=== PATIENT | male | born 1980 | race Caucasian/White ===

== ENCOUNTER 2020-01-15 13:45 | Emergency (ER) | payer OTHER, SELFPAY ==
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
[2020-01-15 13:51] VITALS: BP 142/110; PULSE 98; RESP 18; TEMP 36.8; O2SAT 100
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
[2020-01-15] MEDS: KETOROLAC 30 MG/ML VIAL (*BKC) IV PUSH (14:32)
[2020-01-15 15:10] VITALS: TEMP 36.8
== END 2020-01-15 15:26 | disposition home or self-care (01) ==
PROVIDERS: Emergency Provider Emergency Medicine; PCP Family Medicine
DX: S63.501A Unspecified sprain of right wrist, initial encounter (principal); Z72.0 Tobacco use; M47.812 Spondylosis without myelopathy or radiculopathy, cervical region
CPT/HCPCS: 70450; 72125; 73110; 96374; 99284; J1885

== ENCOUNTER 2020-01-18 16:59 | Emergency (ER) | payer OTHER, SELFPAY ==
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
[2020-01-18 18:06] VITALS: BP 144/79; PULSE 52; RESP 16; TEMP 37; O2SAT 97
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
== END 2020-01-18 18:56 | disposition home or self-care (01) ==
PROVIDERS: Emergency Provider Nurse Practitioner Family; PCP Family Medicine
DX: S46.911A Strain of unspecified muscle, fascia and tendon at shoulder and upper arm level, right arm, initial encounter (principal); V49.50XA Passenger injured in collision with unspecified motor vehicles in traffic accident, initial encounter; F17.220 Nicotine dependence, chewing tobacco, uncomplicated
CPT/HCPCS: 73030; 99213; A4565; G0463

== ENCOUNTER 2020-05-31 10:10 | Emergency (ER) | payer OTHER, SELFPAY ==
--- NOTE | ~2020-05-31 | XR_ITS ---
[XR ribs LT 2V ] INDICATION: Left rib pain. Patient tripped over dog. TECHNIQUE: Frontal projection of the upper left ribs, frontal projection of the lower left ribs, obli que projection of all the left ribs, frontal inspiratory chest x-ray for interpretation. FINDINGS: There is an acute left seventh rib fracture. There are no soft tissue abnormality seen. T he lungs are clear. No pneumothorax. IMPRESSION: 1: Acute left seventh rib fracture. Reviewed, dictated and finalized at location B.
[2020-05-31 10:18] VITALS: BP 141/101; PULSE 79; RESP 16; TEMP 36.9; O2SAT 98
--- NOTE | 2020-05-31 10:24 | ED.FALL ---
HPI - Fall General Chief Complaint: Fall Stated Complaint: left rib pain Time Seen by Provider: 05/31/20 10:40 Source: patient and RN notes reviewed Mode of arrival: ambulatory Limitations: no limitations History of Present Illness HPI Narrative: 39-year-old male presents with concern for left rib pain. Reports 6 days ago he fell down 14 steps when he tripped over his dog causing left rib pain. 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 Reports he has been taking ibuprofen twice daily. Denies difficulty breathing, cough, shortness of breath MD complaint: fall Related Data Allergies Allergy/AdvReac Type Severity Reaction Status Date / Time No Known Allergies Allergy Verified 05/31/20 10:24 Review of Systems Review of Systems: Narrative: CONSTITUTIONAL: Denies malaise, chills, sweats, or fever. CARDIOVASCULAR: Denies chest pain, palpitations, or edema. RESPIRATORY: Denies cough or dyspnea. GASTROINTESTINAL: Denies abdominal pain, nausea, vomiting SKIN: Denies bruising, reports healing abrasions MUSCULOSKELETAL: Reports left rib pain All systems reviewed & are unremarkable except as noted in HPI and below PMFSH Social History Social History Smokeless tobacco user: chewing tobacco Alcohol intake: current Gender identity (if verbalized by the patient): Male Comments At time of signature, agree with nursing past medical, surgical, social and family history. There is no relevant family history pertinent to the presenting complaint Exam Narrative: Exam Narrative: GENERAL: Well-appearing, well-nourished, and in no acute distress. HEAD: Normocephalic, atraumatic. EYES: PERRLA, conjunctivae clear ENT: Mucous membranes moist. TM pearly borrero with sharp light reflex bilaterally; no tragal tenderness. Oropharynx without erythema or lesions. Tonsils not enlarged and without exudate. NECK: Supple CHEST: No respiratory distress. Clear to auscultation. No bony deformities, no asymmetry. Speaks in full sentences. HEART: Regular rate and rhythm. EXTREMITIES: Left upper arm has normal range of motion, no edema, normal strength and sensation. Left chest wall tenderness SKIN: Warm, dry, no rash. No bruising noted to chest NEURO: Alert and oriented x3. PSYCH: Normal mood and affect Course Course Emergency Course: Patient is aware of diagnosis, understands and agrees to treatment plan. Anticipatory guidance given. Patient agrees to follow-up as directed and is aware of reasons to seek care at the emergency department. Portions of this record may have been created with voice recognition software Vital Signs Vital signs: Vital Signs Temperature 98.4 F 05/31/20 10:18 Pulse Rate 79 05/31/20 10:18 Respiratory Rate 16 05/31/20 10:18 Blood Pressure 141/101 H 05/31/20 10:18 Pulse Oximetry 98 05/31/20 10:18 Temperature 98.4 F 05/31/20 10:18 Pulse Rate 79 05/31/20 10:18 Respiratory Rate 16 05/31/20 10:18 Blood Pressure 141/101 H 05/31/20 10:18 Pulse Oximetry 98 05/31/20 10:18 Reviewed. Pt has been instructed to follow up with his primary care provider within the next week regarding his elevated blood pressure today. MDM - Fall MDM Narrative Medical decision making narrative: Patients injury and pain is consistent with musculoskeletal etiology. No signs of neurological or vascular compromise on exam. Compartments and tissues are soft without signs of compartment syndrome. Pain is felt appropriate for further evaluation on an outpatient basis. Critical Care Time Critical Care Time Critical Care Time: No Discharge Plan Discharge Clinical Impression: Left rib fracture Patient Disposition: Home, Self-Care Condition: Stable Instructions: Rib Fracture (ED) Additional Instructions: Pain may get worse for a week and last for up to eight weeks.The most importa
== END 2020-05-31 10:58 | disposition home or self-care (01) ==
PROVIDERS: Emergency Provider Nurse Practitioner; PCP Family Medicine
DX: S22.32XA Fracture of one rib, left side, initial encounter for closed fracture (principal); W10.9XXA Fall (on) (from) unspecified stairs and steps, initial encounter; F17.220 Nicotine dependence, chewing tobacco, uncomplicated
CPT/HCPCS: 71100; 99213; G0463

== ENCOUNTER 2022-07-02 08:57 | Emergency (ER) | payer OTHER, SELFPAY ==
--- NOTE | ~2022-07-02 | XR_ITS ---
[XR_[id number] ] INDICATION: Left rib pain after fall TECHNIQUE: Frontal projection of the upper left ribs, frontal projection of the lower left ribs, obli que projection of all the left ribs, frontal inspiratory chest x-ray for interpretation. FINDINGS: There are no displaced rib fractures identified. There are no soft tissue abnormality see n. The lungs are clear. IMPRESSION: 1:No acute displaced rib fractures. Reviewed, dictated and finalized at location B.
[2022-07-02 09:06] VITALS: PULSE 85; RESP 20; TEMP 36.6; O2SAT 100
[2022-07-02 09:25] VITALS: BP 160/105
--- NOTE | 2022-07-02 09:25 | PC.NURSE ---
PT DECLINED ICE FOR COMFORT
--- NOTE | 2022-07-02 09:28 | ED.GENADULT ---
HPI - General Adult General Chief complaint: Unspecified Stated complaint: rib injury Time Seen by Provider: 07/02/22 09:28 Source: patient Mode of arrival: ambulatory Limitations: no limitations History of Present Illness HPI narrative: 41 y/o male presented for c/o left rib pain since yesterday. He states he had fallen on the left rib about 2 weeks ago landing on a tire. The pain was minimal since then. However he returned to work yesterday after being off work for right shoulder injury. States yesterday he performed his normal duties but resulted in left rib pain. No new injury. No bruising. Took ibuprofen for pain. Denies rash or lesions, cough, sob, chest pain fever or chills. Related Data Home Medications Medication Instructions Recorded Confirmed No Home Medications 07/02/22 07/02/22 Allergies Allergy/AdvReac Type Severity Reaction Status Date / Time No Known Allergies Allergy Verified 07/02/22 09:30 Review of Systems Review of Systems: CONSTITUTIONAL: Denies body aches, fever, chills EYES: Denies visual changes ENT: Denies rhinorrhea, congestion CARDIOVASCULAR: Denies chest pain, palpitations, or edema. RESPIRATORY: Denies cough or dyspnea. GASTROINTESTINAL: Denies abdominal pain, nausea, vomiting, or diarrhea. SKIN: Denies rash, itching, or wounds. MUSCULOSKELETAL:Reports left rib pain NEUROLOGIC: Denies headache All systems reviewed & are unremarkable except as noted in HPI and below PMFSH Past Medical History Medical History No pertinent past medical history Surgical History Surgical History No pertinent past surgical history Social History Social History Smokeless tobacco user: chewing tobacco Alcohol intake: current Gender identity (if verbalized by the patient): Male Comments At time of signature, I have reviewed and agree with nursing past medical, surgical, social and family history unless otherwise noted. Please see nursing chart for further information. There is no relevant family history pertinent to the presenting complaint Exam Narrative: GENERAL: Well-appearing; appears in pain EYES: conjunctivae clear CHEST: Speaks in full sentences. No respiratory distress. HEART: Regular rate and rhythm. Normal and equal peripheral pulses. ABD: soft, flat MUSC: guarding left ribs; no bruising, lesions, or deformity, tender with palpation to anterior lower ribs NEURO: Alert and oriented x3. Course Course Emergency Course: Patient is aware of diagnosis, understands and agrees to treatment plan. Anticipatory guidance given. Patient agrees to follow-up as directed and is aware of reasons to seek care at the emergency department. Portions of this record may have been created with voice recognition software Level of Care: Express Care Visit Vital Signs Vital signs: Vital Signs Temperature 98 F 07/02/22 09:06 Pulse Rate 85 07/02/22 09:06 Respiratory Rate 20 07/02/22 09:06 Pulse Oximetry 100 07/02/22 09:06 Oxygen Delivery Room Air 07/02/22 09:06 Temperature 98 F 07/02/22 09:06 Pulse Rate 85 07/02/22 09:06 Respiratory Rate 20 07/02/22 09:06 Blood Pressure 160/105 H 07/02/22 09:25 Pulse Oximetry 100 07/02/22 09:06 Oxygen Delivery Room Air 07/02/22 09:06 Reviewed Medical Decision Making MDM Narrative Medical decision making narrative: X-ray result reviewed with patient. Advised supportive measures and signs/symptoms to go to the ER. Instructed to contact PCP today. Pt is appropriate for outpt treatment and f/u. Differential Diagnosis Differential Diagnosis: rib fracture, rib contusion, costochondritis, musculoskeletal injury, zoster Vital Signs Vital Signs: Vital Signs Temperature 98 F 07/02/22 09:06 Pulse Rate 85 07/02/22 09:06 Respiratory Rate
== END 2022-07-02 09:55 | disposition home or self-care (01) ==
PROVIDERS: Emergency Provider Nurse Practitioner Family; PCP Family Medicine
DX: S20.212A Contusion of left front wall of thorax, initial encounter (principal); W19.XXXA Unspecified fall, initial encounter; F17.220 Nicotine dependence, chewing tobacco, uncomplicated
CPT/HCPCS: 71101; 99213; G0463

== ENCOUNTER 2023-01-20 10:17 | Emergency (ER) | payer OTHER, SELFPAY ==
[2023-01-20 10:26] VITALS: BP 143/102; PULSE 76; RESP 16; TEMP 37.5; O2SAT 100
--- NOTE | 2023-01-20 10:32 | ED.LOWEXIN ---
HPI - Extremity Injury (Lower) General Chief Complaint: Extremity Injury, Lower Stated Complaint: left knee injury Source: patient and RN notes reviewed History of Present Illness HPI Narrative: 42-year-old male presents to urgent care with complaints left superior knee pain. Patient states last he was wrestling with his son and hit his left knee on the bunk bed. Pt reports tenderness, swelling, and bruising to left upper knee. Pt denies any numbness, tingling, limited range of motion, or any other complaints. Patient has taken Advil at home. Some parts of this dictation were generated by voice recognition software and may contain typographical and/or grammatical inaccuracies. Related Data Home Medications Medication Instructions Recorded Confirmed No Home Medications 07/02/22 07/02/22 Allergies Allergy/AdvReac Type Severity Reaction Status Date / Time No Known Allergies Allergy Verified 07/02/22 09:30 Review of Systems Review of Systems: CONSTITUTIONAL: Denies fever, chills, or sweats. EYES: Denies visual changes, redness, or discharge. ENT: Denies otalgia and sore throat CARDIOVASCULAR: Denies chest pain, palpitations, or edema. RESPIRATORY: Denies cough or dyspnea. GASTROINTESTINAL: Denies abdominal pain, nausea, vomiting, or diarrhea. GENITOURINARY: Denies dysuria or hematuria. SKIN: Denies rash or itching. MUSCULOSKELETAL: Left knee pain NEUROLOGIC: Denies headache, numbness, or weakness. [facility] Past Medical History Medical History (Updated 01/20/23 @ 10:34 by Merari Tabor APRN) No pertinent past medical history Surgical History Surgical History No pertinent past surgical history Social History Social History Smokeless tobacco user: chewing tobacco Alcohol intake: current Gender identity (if verbalized by the patient): Male Comments At the time of my signature, I reviewed and agree with the nursing past medical, surgical, social, and family history. There is no relevant family history pertinent to the patient complaint. Exam Narrative: GENERAL: This is a well-nourished, well-developed patient, in no apparent distress. HEAD: normocephalic, atraumatic. NECK: Neck supple, non-tender without lymphadenopathy, masses or thyromegaly. CARDIOVASCULAR: Regular rate. RESPIRATORY: No respiratory distress GASTROINTESTINAL: Abdomen soft, non-tender, nondistended. Bowel sounds are active. No hepato-splenomegaly, or palpable masses. No guarding. SKIN: warm, intact with no suspicious lesions or rash, good texture and turgor. NEURO: awake, alert, and oriented to person, place and time. There were no obvious focal neurologic abnormalities. EXTREMITIES: Left superior knee noted to be slighlty edematous, light bruising noted, mild tenderness. ROM intact. No issues with gait. Course Course Level of Care: Express Care Visit Vital Signs Vital signs: Vital Signs Temperature 99.5 F 01/20/23 10:26 Pulse Rate 76 01/20/23 10:26 Respiratory Rate 16 01/20/23 10:26 Blood Pressure 143/102 H 01/20/23 10:26 Pulse Oximetry 100 01/20/23 10:26 Oxygen Delivery Room Air 01/20/23 10:26 Temperature 99.5 F 01/20/23 10:26 Pulse Rate 76 01/20/23 10:26 Respiratory Rate 16 01/20/23 10:26 Blood Pressure 143/102 H 01/20/23 10:26 Pulse Oximetry 100 01/20/23 10:26 Oxygen Delivery Room Air 01/20/23 10:26 Reviewed MDM - Extremity Injury (Lower) MDM Narrative Medical decision making narrative: Use the RICE method at home. May take ibuprofen and/or Tylenol if needed for pain. Follow up with your MD in 2-5 days if symptoms persist. Differential Diagnosis Differential diagnosis: Likely other (Sprain, contusion, bursisitis) Critical Care Time Critical Care Time Critical Care Time: No Discharge Plan Discharge Clinical Impression: Contusion of knee
== END 2023-01-20 10:40 | disposition home or self-care (01) ==
PROVIDERS: Emergency Provider Nurse Practitioner Family; PCP Family Medicine
DX: S80.02XA Contusion of left knee, initial encounter (principal); F17.220 Nicotine dependence, chewing tobacco, uncomplicated; W22.03XA Walked into furniture, initial encounter; Y93.72 Activity, wrestling
CPT/HCPCS: 99212; G0463

== ENCOUNTER 2023-09-22 09:53 | Emergency (ER) | payer OTHER, SELFPAY ==
[2023-09-22 10:03] VITALS: BP 141/98; PULSE 114; RESP 18; TEMP 37.1; O2SAT 98
--- NOTE | 2023-09-22 10:19 | ED.FALL ---
HPI - Fall General Chief Complaint: Fall Stated Complaint: right side injury from fall Source: patient and RN notes reviewed History of Present Illness HPI Narrative: 42 yo M presents to urgent care with complaints of right sided facial soreness. Pt states 1 month ago, he tripped over his dog and fell down a flight of stairs, hitting his right eye. Pt showed pictures of his right sided black eye he obtained after the fall and a couple pictures after that, showing the healing process. Today, pt states he continues to be just a little sore in his right lower orbit. Denies any visual disturbance, trouble opening and closing his jaw, ear pain, or eye pain. Related Data Home Medications Medication Instructions Recorded Confirmed No Home Medications 07/02/22 07/02/22 Allergies Allergy/AdvReac Type Severity Reaction Status Date / Time No Known Allergies Allergy Verified 07/02/22 09:30 Review of Systems Review of Systems: CONSTITUTIONAL: Denies fever, chills, or sweats. EYES: Denies visual changes, redness, or discharge. Right lower orbit tenderness. ENT: Denies otalgia and sore throat. reports right sided facial soreness CARDIOVASCULAR: Denies chest pain, palpitations, or edema. RESPIRATORY: Denies cough or dyspnea. GASTROINTESTINAL: Denies abdominal pain, nausea, vomiting, or diarrhea. GENITOURINARY: Denies dysuria or hematuria. SKIN: Denies rash or itching. MUSCULOSKELETAL: Denies back pain, joint pain, or myalgia. NEUROLOGIC: Denies headache, numbness, or weakness. Pertinent positives per HPI. [facility] Past Medical History Medical History (Updated 09/22/23 @ 10:22 by Merari Tabor APRN) No pertinent past medical history Surgical History Surgical History No pertinent past surgical history Social History Social History Smokeless tobacco user: chewing tobacco Alcohol intake: current Gender identity (if verbalized by the patient): Male Comments At the time of my signature, I reviewed and agree with the nursing past medical, surgical, social, and family history. There is no relevant family history pertinent to the patient complaint. Exam Narrative: GENERAL: This is a well-nourished, well-developed patient, in no apparent distress. HEAD: normocephalic, atraumatic. EYES: Sclera clear/white. Vision is grossly intact. PERRL.Right lower orbit tenderness. EARS: External ears normal, auditory canals clear and without drainage, TMs normal without perforation. Hearing grossly intact. NOSE: External nose normal with no obvious nasal discharge, nares without redness, no rhinorrhea. THROAT: Mucous membranes moist, posterior pharynx clear. MOUTH: full ROM without popping or dislocation with opening of the jaw NECK: Neck supple, non-tender without lymphadenopathy, masses or thyromegaly. CARDIOVASCULAR: Regular rate and rhythm without murmurs, gallops, or rubs. RESPIRATORY: Clear to auscultation. Breath sounds equal bilaterally. No wheezes, rales, or rhonchi. SKIN: warm, intact with no suspicious lesions or rash, good texture and turgor. NEURO: awake, alert, and oriented to person, place and time. There were no obvious focal neurologic abnormalities. Course Course Level of Care: Express Care Visit Vital Signs Vital signs: Vital Signs Temperature 98.8 F 09/22/23 10:03 Pulse Rate 114 H 09/22/23 10:03 Respiratory Rate 18 09/22/23 10:03 Blood Pressure 141/98 H 09/22/23 10:03 Pulse Oximetry 98 09/22/23 10:03 Oxygen Delivery Room Air 09/22/23 10:03 Temperature 98.8 F 09/22/23 10:03 Pulse Rate 114 H 09/22/23 10:03 Respiratory Rate 18 09/22/23 10:03 Blood Pressure 141/98 H 09/22/23 10:03 Pulse Oximetry 98 09/22/23 10:03 Oxygen Delivery Room Air 09/22/23 10:03 reviewed MDM - Fall MDM Narrative Medical decision making narrative: If you develop any
== END 2023-09-22 10:27 | disposition home or self-care (01) ==
PROVIDERS: Emergency Provider Nurse Practitioner Family; PCP Family Medicine
DX: S05.11XA Contusion of eyeball and orbital tissues, right eye, initial encounter (principal); W10.9XXA Fall (on) (from) unspecified stairs and steps, initial encounter; F17.220 Nicotine dependence, chewing tobacco, uncomplicated
CPT/HCPCS: 99212; G0463

== ENCOUNTER 2024-12-12 10:38 | Emergency (ER) | payer SELFPAY ==
[2024-12-12] VITALS (9 sets, daily range): BP systolic 125–143; BP diastolic 80–91; PULSE 66–87; RESP 12–16; TEMP 36.8; O2SAT 98–100
--- NOTE | ~2024-12-12 | XR_ITS ---
EXAMINATION: XR chest 2V DATE: 12/12/2024 13:17 INDICATION: 2 weeks of cough TECHNIQUE: PA and lateral views of the chest were obtained. COMPARISON: Chest radiograph dated 05/31/2020 FINDINGS: The lungs remain clear with no focal airspace opacities, pulmonary edema, pleural effusion or pneumot horax. The cardiomediastinal silhouette is normal. Visualized bones and soft tissues are unremarkable . IMPRESSION: 1. No acute cardiopulmonary disease. Reviewed, dictated and finalized at location B. [employer]
[2024-12-12 11:36] LABS: Glucose Point of Care 99 mg/dl (65-105)
--- OUTSIDE RECORDS SUMMARY | 2024-12-12 11:41 | XMS_ITS | Patient Health Summary ---
Author Organization [facility] Address [address] [place] [address] Care Team Providers Care Hatch Tender Name Role Phone Darnell Alicea MD Primary Care Provider [phone] Note from [facility],non-owned Affiliates and Associated Physician Practices is amultiple site organization consisting of ambulatory clinics and hospital sitesin [place], [place], [place] and [place]. This disclosure is being madepursuant to the Care Everywhere program and may not contain all information available regarding this patient. Last updated 18.[facility] Allergies No known active allergies Medications * Be aware that medications may not be up to date on this document. Alwaysverify current medications with the patient. * ondansetron (ZOFRAN) 4 MG tablet(Started 02/24/2017) Take 1 Tab by mouth every 8 hours as needed for Nausea/Vomiting * montelukast (SINGULAIR) 10 MG tablet(Started 03/09/2017) Take 1 Tab by mouth every evening Active Problems No known active problems Social History Tobacco Use Types Packs/Day Years Used Date Smoking Tobacco: Never Sex and Gender Information Value Date Recorded Sex Assigned at Not on file Gender Identity Not on file Sexual Orientation Not on file Last Filed Vital Signs Vital Sign Reading Time Taken Comments Blood Pressure 132/88 03/09/2017 3:31 PM CDT Pulse 76 03/09/2017 3:31 PM CDT Temperature 37.4 ??C (99.3 ??F) 03/09/2017 3:31 PM CD T Respiratory Rate 16 02/24/2017 11:49 AM CDT Oxygen Saturation 97% 12/22/2016 2: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 Oxygen Concentration - - Weight 72.6 kg (160 lb) 03/09/2017 3:31 PM CDT Height 182.9 cm (6') 03/09/2017 3:31 PM CDT Body Mass Index 21.7 03/09/2017 3:31 PM CDT Procedures * INFLUENZA A+B - POINT OF CARE (AMB)(Performed 02/24/2017) Performed for Viral illness Results * INFLUENZA A+B - POINT OF CARE (AMB) (02/24/2017 12:03 PM CDT) Influenza A Antigen Rapid Negative Negative Influenza B Antigen Rapid Negative Negative Influenza Internal Control positive NEGATIVE - POSITIVE Influenza Lot Number [id number] Influenza Expiration Date Other NASOPHARYNGEAL SWAB / Unknown 02/24/2017 12:03 PM CDT Helene Felipe GALLERY DIRECTOR-ANNUAL CAMPAIGN MANAGER LAB - [facility] CARE ORDERABLES Care Teams Hatch Tender Relationship Specialty Start Date End Date [place] [id number] PCP - General Internal Medicine 11/24/16
--- OUTSIDE RECORDS SUMMARY | 2024-12-12 11:41 | XMS_ITS | Clinical Summary ---
Author Organization [facility] Address [address] [address] Care Team Providers Care Life Skills Consultant Name Role Phone Darnell Alicea MD Primary Care Provider [phone] Source Comments [facility],non-owned Affiliates and Associated Physician Practices is amultiple site organization consisting of ambulatory clinics and hospital sitesin [place], [place], [place] and [place]. This disclosure is being madepursuant to the Care Everywhere program and may not contain all information available regarding this patient. Last updated 18.[facility] Allergies No known active allergies Medications * Be aware that medications may not be up to date on this document. Alwaysverify current medications with the patient. 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 Inhaled Oxygen Concentration - - Weight 72.6 kg (160 lb) 03/09/2017 3:31 PM CDT Height 182.9 cm (6') 03/09/2017 3:31 PM CDT Body Mass Index 21.7 03/09/2017 3:31 PM CDT Plan of Treatment Health Maintenance Due Date Last Done Comments COLOGUARD (AGES 45-75) - COL ON CA SCREENING 1979 COLON MONITORING 1979 COLONOSCOPY - COLON CA SCREENING 1979 CT COLONOGRAPHY - COLON CA SCREENING 1979 Colorectal Cancer Screening 1979 FIT - COLON CA SCREENING 1979 FLEX SIG - COLON CA SCREENING 1979 LIPID TESTING 1979 HIV SCREENING 1994 HEPATITIS C SCREENING 11/17/1997 DTAP/TDAP/TD VACCINES (1 - Tdap) 1998 HEPATITIS B VACCINE (1 of 3 - 19+ 3-dose series) 1998 COVID-19 VACCINE ( - 2023-2 5 season) 2024 INFLUENZA VACCINE (#1) 2024 DEPRESSION SCREENING 11/16/2024 ZOSTER VACCINE (1 of 2) 2029 HIB VACCINE Aged Out No longer eligi ble based on patient's age to complete this topic HPV VACCINE Aged Out No longer eligi ble based on patient's age to complete this topic MENINGOCOCCAL (Group B) VACCINE Aged Out No longer eligible based on patient's age to complete this topic MENINGOCOCCAL VACCINE Aged Out No isaura liam eligible based on patient's age to complete this topic PNEUMOCOCCAL VACCINE Aged Out No long er eligible based on patient's age to complete this topic Care Teams Life Skills Consultant Relationship Specialty Start Date End Date Darnell Alicea MD [address] [place] [id number] PCP - General Internal Medicine 11/24/16
--- OUTSIDE RECORDS SUMMARY | 2024-12-12 11:41 | XMS_ITS | Referral Summary ---
Author Organization [facility] Address [address] [place] [address] Care Team Providers Care Cia Agent Name Role Phone Darnell Alicea MD Primary Care Provider [phone] [phone] Source Comments [facility],non-owned Affiliates and Associated Physician Practices is amultiple site organization consisting of ambulatory clinics and hospital sitesin [place], [place], [place] and [place]. This disclosure is being madepursuant to the Care Everywhere program and may not contain all information available regarding this patient. 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
--- NOTE | 2024-12-12 12:40 | ECG_ITS ---
Test Date: 2024-12-12 13:09:03 Measurements Intervals [place] Rate: 74 P: 52 GA: 178 QRS: 26 QRSD: 80 T: 40 QT: 414 QTc: 460 Interpretive Statements SINUS RHYTHM MODERATE VOLTAGE CRITERIA FOR LVH, CONSIDER NORMAL VARIANT [MEETS CRITERIA IN ONE OF: R(aVL), S(V1), R(V5), R(V5/V6)+S(V1)] No previous ECG available for comparison Electronically Signed On 12-12-2024 13:37:32 RETIREMENT VILLAGE MANAGER by Yesy Amado M.D.
--- NOTE | 2024-12-12 12:50 | ED_ITS ---
HPI - Syncope General Chief Complaint: Recheck/Abnormal Lab/Rx <Luciana Murillo APRN - Last Filed: 12/12/24 12:53> Stated Complaint: weak Dizzy, not feeling right, bs 58 <Luciana Murillo APRN - Last Filed: 12/12/24 12:53> Time Seen by Provider: 12/12/24 12:30 <Luciana Murillo APRN - Last Filed: 12/12/24 12:53> Focused HPI: Patient is a 44-year-old male who presents to the ER with complaints of a presyncopal episode this morning. He reports around 9:30 a.m. he started feeling lightheaded and as though he was going to pass out. The patient denies any history of diabetes but reports he thinks his blood sugar was low. He reports he had a poptart for breakfast around 5:30 a.m. patient reports the episode resolved but he 1 to come to the ER for evaluation. Patient reports his not had any recent signs/symptoms of illness, but has had a ?common cold? for the past 2 weeks. GENERAL: Well-appearing, well-nourished, and in no acute distress. HEAD: Normocephalic, atraumatic. CHEST: Clear to auscultation. ?No respiratory distress. HEART: Regular rate and rhythm.? NEURO: ?Alert and oriented x3. Patient screened in triage and initial orders placed.? ?Additional care and disposition to be based upon?diagnostic testing and treatment. <Luciana Murillo APRN - Last Filed: 12/12/24 12:53> Related Data Home Medications: Home Medications ?Medication ?Instructions ?Recorded ?Confirmed ?Last Taken ?Type No Home Medications 07/02/22 07/02/22 Unknown History <Luciana Murillo APRN - Last Filed: 12/12/24 12:53> Allergies/Adverse Reactions: Allergies Allergy/AdvReac Type Severity Reaction Status Date / Time No Known Allergies Allergy Verified 07/02/22 09:30 <Luciana Murillo APRN - Last Filed: 12/12/24 12:53> PMFSH Past Medical History Medical History: Medical History (Updated 12/12/24 @ 15:38 by Fantasma Rankin MD) No pertinent past medical history <Luciana Murillo APRN - Last Filed: 12/12/24 12:53> Surgical History Surgical History: Surgical History No pertinent past surgical history <Luciana Murillo APRN - Last Filed: 12/12/24 12:53> Social History Social History: Social History Smokeless tobacco user: chewing tobacco Alcohol intake: current Gender identity (if verbalized by the patient): Male <Luciana Murillo APRN - Last Filed: 12/12/24 12:53> Exam 2 Narrative: APPEARANCE: No apparent distress. Head: atraumatic. EYES: EOMI, NOSE: Atraumatic NECK: Trachea midline RESPIRATORY: No increased rate of breathing CARDIOVASCULAR: RRR, ABDOMINAL: Non-distended MUSCULOSKELETAl: No obvious deformities NEURO: Alert. Moving 4/4 extremities SKIN:: Warm, dry. Normal color PSYCHIATRIC: Normal affect <Fantasma Rankin MD - Last Filed: 12/12/24 15:48> Course Vital Signs Vital signs: Vital Signs Temperature 98.3 F 12/12/24 11:28 Pulse Rate 87 12/12/24 11:28 Respiratory Rate 16 12/12/24 11:28 Blood Pressure 125/80 12/12/24 11:28 Pulse Oximetry 99 12/12/24 11:28 Oxygen Delivery Room Air 12/12/24 11:28 Temperature 98.3 F 12/12/24 11:28 Pulse Rate 76 12/12/24 14:28 Respiratory Rate 13 12/12/24 14:28 Blood Pressure 127/84 12/12/24 14:28 Pulse Oximetry 99 12/12/24 14:28 Oxygen Delivery Room Air 12/12/24 11:28 <Luciana Murillo APRN - Last Filed: 12/12/24 12:53> Vital Signs Temperature 98.3 F 12/12/24 11:28 Pulse Rate 87 12/12/24 11:28 Respiratory Rate 16 12/12/24 11:28 Blood Pressure 125/80 12/12/24 11:28 Pulse Oximetry 99 12/12/24 11:28 Oxygen Delivery Room Air 12/12/24 11:28 Temperature 98.3 F 12/12/24 11:28 Pulse Rate 76 12/12/24 14:28 Respiratory Rate 13 12/12/24 14:28 Blood Pressure 127/84 12/12/24 14:28 Pulse Oximetry 99 12/12/24 14:28 Oxygen Delivery Room Air 12/12/24 11:28 <Fantasma Rankin MD - Last Filed: 12/12/24 15:48> MDM - Syncope MDM Narrative Medical decision making narrative: Agree with the HPI except the patient described the strange feeling as significant anxiety or even a panic attack. -Course: 44-year-old male presenting with low blood sugars. Patient was fed with improvement and stabilization. His laboratory studies and infectious workup were negative. No use of medications or improper use of insulin. No evidence of infection or fevers. Patient has been in our ED for 5 hours and is resting comfortably in bed. Patient will be discharged with instructions return to ED if he redevelops any symptoms. Patient will follow-up with primary care physician. -DDX includes but is not limited to: Hypoglycemia, anxiety, insulinoma, dehydration, decreased oral intake -Shared decision making / Disposition:discharged. <Fantasma Rankin MD - Last Filed: 12/12/24 15:48> Lab Data Result diagrams: 12/12/24 13:09 12/12/24 13:09 <Luciana Murillo APRN - Last Filed: 12/12/24 12:53> Labs: Lab Results 12/12/24 12/12/24 12/12/24 Range/Units 11:33 13:02 13:09 WBC 6.5 (4.5-10.0) K/mm3 RBC 4.46 L (4.6-6.20) M/mm3 Hgb 13.5 L (14.0-18.0) g/dL Hct 40.3 L (42.0-52.0) % MCV 90.4 (80-100) fl MCH 30.3 (26-34) pg MCHC 33.5 (32-36) g/dl RDW 15.8 H (11.5-14.5) % Plt Count 299 (150-375) k/mm3 MPV 9.1 (7.4-10.4) fl Immature Gran % (Auto) 0.3 (0-0.5) % Neut % (Auto) 64.8 (45.5-73.1) % Lymph % (Auto) 24.5 (18.3-44.2) % [place] % (Auto) 9.4 H (2.6-8.5) % Eos % (Auto) 0.2 (0-4.4) % Baso % (Auto) 0.8 (0.2-1.2) % Lymph # (Auto) 1.59 (0.9-3.2) K/mm3 [place] # (Auto) 0.6 (0.1-0.6) K/mm3 Eos # (Auto) 0.0 (0-0.3) K/mm3 Baso # (Auto) 0.1 (0.0-0.1) K/mm3 Abs Immat Gran (auto) 0.02 (0.00-0.031) K/mm3 Absolute Neuts (auto) 4.2 (1.3-6.7) K/mm3 Absolute Nucleated RBC 0.000 (0.0-0.012) K/mm3 Nucleated RBC % 0.0 (0.0-0.2) % PT 14.0 (11.1-14.7) Seconds INR 1.0 APTT 25.5 (22.3-36.8) Seconds Sodium 140 (137-145) mmol/L Potassium 4.3 (3.4-5.0) mmol/L Chloride 101 (98-107) mmol/L Carbon Dioxide 26 (22-30) mmol/L Anion Gap 13 H (4-12) mmol/L BUN 12 (9-20) mg/dL Creatinine 0.65 L (0.7-1.3) mg/dL Estim Creat Clear Calc 118 ml/min Estimated GFR > 60 (59 - ) Glucose 72 (65-110) mg/dL POC Capillary Glucose 99 67 (65-105) mg/dl Calcium 8.6 (8.4-10.2) mg/dL Magnesium 2.0 (1.6-2.3) mg/dL Total Bilirubin 0.5 (0.2-1.3) mg/dL AST 47 (17-59) U/L ALT 23 (6-50) U/L Alkaline Phosphatase 97 (38-126) U/L Troponin I < 0.012 (0.000-0.034) ng/mL Total Protein 7.0 (6.3-8.2) g/dL Albumin 4.2 (3.5-5.1) g/dL Urine Color (Yellow) Urine Appearance (Clear) Urine pH (5.0-9.0) Ur Specific [place] (1.001-1.035) Urine Protein (Negative) mg/dL Urine Glucose (UA) (Negative) mg/dL Urine Ketones (Negative) mg/dL Ur Blood (Man) (Negative) Urine Nitrate (Negative) Urine Bilirubin (Negative) Urine Urobilinogen (<2.0) mg/dL Leukocyte Esterase Rfl (Negative) RONNY/UL Urine RBC (0-2) /hpf Urine WBC (0-3) /hpf Ur Squamous Epith Cells (Few) /hpf Urine Bacteria /hpf Urine Casts Influenza A (RT-PCR) Negative (Negative) Influenza B (RT-PCR) Negative (Negative) RSV (RT-PCR) Negative (Negative) SARS-CoV-2 RNA (RT-PCR) Negative (Negative) 12/12/24 12/12/24 12/12/24 Range/Units 14:13 14:28 15:16 WBC (4.5-10.0) K/mm3 RBC (4.6-6.20) M/mm3 Hgb (14.0-18.0) g/dL Hct (42.0-52.0) % MCV (80-100) fl MCH (26-34) pg MCHC (32-36) g/dl RDW (11.5-14.5) % Plt Count (150-375) k/mm3 MPV (7.4-10.4) fl Immature Gran % (Auto) (0-0.5) % Neut % (Auto) (45.5-73.1) % Lymph % (Auto) (18.3-44.2) % [place] % (Auto) (2.6-8.5) % Eos % (Auto) (0-4.4) % Baso % (Auto) (0.2-1.2) % Lymph # (Auto) (0.9-3.2) K/mm3 [place] # (Auto) (0.1-0.6) K/mm3 Eos # (Auto) (0-0.3) K/mm3 Baso # (Auto) (0.0-0.1) K/mm3 Abs Immat Gran (auto) (0.00-0.031) K/mm3 Absolute Neuts (auto) (1.3-6.7) K/mm3 Absolute Nucleated RBC (0.0-0.012) K/mm3 Nucleated RBC % (0.0-0.2) % PT (11.1-14.7) Seconds INR APTT (22.3-36.8) Seconds Sodium (137-145) mmol/L Potassium (3.4-5.0) mmol/L Chloride (98-107) mmol/L Carbon Dioxide (22-30) mmol/L Anion Gap (4-12) mmol/L BUN (9-20) mg/dL Creatinine (0.7-1.3) mg/dL Estim Creat Clear Calc ml/min Estimated GFR (59 - ) Glucose (65-110) mg/dL POC Capillary Glucose 60 L 120 H (65-105) mg/dl Calcium (8.4-10.2) mg/dL Magnesium (1.6-2.3) mg/dL Total Bilirubin (0.2-1.3) mg/dL AST (17-59) U/L ALT (6-50) U/L Alkaline Phosphatase (38-126) U/L Troponin I (0.000-0.034) ng/mL Total Protein (6.3-8.2) g/dL Albumin (3.5-5.1) g/dL Urine Color Yellow (Yellow) Urine Appearance Clear (Clear) Urine pH 6.5 (5.0-9.0) Ur Specific [place] 1.020 (1.001-1.035) Urine Protein Trace (Negative) mg/dL Urine Glucose (UA) Negative (Negative) mg/dL Urine Ketones 1+ H (Negative) mg/dL Ur Blood (Man) Negative (Negative) Urine Nitrate Negative (Negative) Urine Bilirubin Negative (Negative) Urine Urobilinogen 0.2 (<2.0) mg/dL Leukocyte Esterase Rfl Negative (Negative) RONNY/UL Urine RBC 0-2 (0-2) /hpf Urine WBC 0-5 (0-3) /hpf Ur Squamous Epith Cells None seen (Few) /hpf Urine Bacteria None seen /hpf Urine Casts 0-2 Influenza A (RT-PCR) (Negative) Influenza B (RT-PCR) (Negative) RSV (RT-PCR) (Negative) SARS-CoV-2 RNA (RT-PCR) (Negative) <Luciana Tomuble, [employer] - Last Filed: 12/12/24 12:53> Lab Results 12/12/24 12/12/24 12/12/24 Range/Units 11:33 13:02 13:09 WBC 6.5 (4.5-10.0) K/mm3 RBC 4.46 L (4.6-6.20) M/mm3 Hgb 13.5 L (14.0-18.0) g/dL Hct 40.3 L (42.0-52.0) % MCV 90.4 (80-100) fl MCH 30.3 (26-34) pg MCHC 33.5 (32-36) g/dl RDW 15.8 H (11.5-14.5) % Plt Count 299 (150-375) k/mm3 MPV 9.1 (7.4-10.4) fl Immature Gran % (Auto) 0.3 (0-0.5) % Neut % (Auto) 64.8 (45.5-73.1) % Lymph % (Auto) 24.5 (18.3-44.2) % [place] % (Auto) 9.4 H (2.6-8.5) % Eos % (Auto) 0.2 (0-4.4) % Baso % (Auto) 0.8 (0.2-1.2) % Lymph # (Auto) 1.59 (0.9-3.2) K/mm3 [place] # (Auto) 0.6 (0.1-0.6) K/mm3 Eos # (Auto) 0.0 (0-0.3) K/mm3 Baso # (Auto) 0.1 (0.0-0.1) K/mm3 Abs Immat Gran (auto) 0.02 (0.00-0.031) K/mm3 Absolute Neuts (auto) 4.2 (1.3-6.7) K/mm3 Absolute Nucleated RBC 0.000 (0.0-0.012) K/mm3 Nucleated RBC % 0.0 (0.0-0.2) % PT 14.0 (11.1-14.7) Seconds INR 1.0 APTT 25.5 (22.3-36.8) Seconds Sodium 140 (137-145) mmol/L Potassium 4.3 (3.4-5.0) mmol/L Chloride 101 (98-107) mmol/L Carbon Dioxide 26 (22-30) mmol/L Anion Gap 13 H (4-12) mmol/L BUN 12 (9-20) mg/dL Creatinine 0.65 L (0.7-1.3) mg/dL Estim Creat Clear Calc 118 ml/min Estimated GFR > 60 (59 - ) Glucose 72 (65-110) mg/dL POC Capillary Glucose 99 67 (65-105) mg/dl Calcium 8.6 (8.4-10.2) mg/dL Magnesium 2.0 (1.6-2.3) mg/dL Total Bilirubin 0.5 (0.2-1.3) mg/dL AST 47 (17-59) U/L ALT 23 (6-50) U/L Alkaline Phosphatase 97 (38-126) U/L Troponin I < 0.012 (0.000-0.034) ng/mL Total Protein 7.0 (6.3-8.2) g/dL Albumin 4.2 (3.5-5.1) g/dL Urine Color (Yellow) Urine Appearance (Clear) Urine pH (5.0-9.0) Ur Specific [place] (1.001-1.035) Urine Protein (Negative) mg/dL Urine Glucose (UA) (Negative) mg/dL Urine Ketones (Negative) mg/dL Ur Blood (Man) (Negative) Urine Nitrate (Negative) Urine Bilirubin (Negative) Urine Urobilinogen (<2.0) mg/dL Leukocyte Esterase Rfl (Negative) RONNY/UL Urine RBC (0-2) /hpf Urine WBC (0-3) /hpf Ur Squamous Epith Cells (Few) /hpf Urine Bacteria /hpf Urine Casts Influenza A (RT-PCR) Negative (Negative) Influenza B (RT-PCR) Negative (Negative) RSV (RT-PCR) Negative (Negative) SARS-CoV-2 RNA (RT-PCR) Negative (Negative) 12/12/24 12/12/2412/12/25 Range/Units 14:13 14:28 15:16 WBC (4.5-10.0) K/mm3 RBC (4.6-6.20) M/mm3 Hgb (14.0-18.0) g/dL Hct (42.0-52.0) % MCV (80-100) fl MCH (26-34) pg MCHC (32-36) g/dl RDW (11.5-14.5) % Plt Count (150-375) k/mm3 MPV (7.4-10.4) fl Immature Gran % (Auto) (0-0.5) % Neut % (Auto) (45.5-73.1) % Lymph % (Auto) (18.3-44.2) % [place] % (Auto) (2.6-8.5) % Eos % (Auto) (0-4.4) % Baso % (Auto) (0.2-1.2) % Lymph # (Auto) (0.9-3.2) K/mm3 [place] # (Auto) (0.1-0.6) K/mm3 Eos # (Auto) (0-0.3) K/mm3 Baso # (Auto) (0.0-0.1) K/mm3 Abs Immat Gran (auto) (0.00-0.031) K/mm3 Absolute Neuts (auto) (1.3-6.7) K/mm3 Absolute Nucleated RBC (0.0-0.012) K/mm3 Nucleated RBC % (0.0-0.2) % PT (11.1-14.7) Seconds INR APTT (22.3-36.8) Seconds Sodium (137-145) mmol/L Potassium (3.4-5.0) mmol/L Chloride (98-107) mmol/L Carbon Dioxide (22-30) mmol/L Anion Gap (4-12) mmol/L BUN (9-20) mg/dL Creatinine (0.7-1.3) mg/dL Estim Creat Clear Calc ml/min Estimated GFR (59 - ) Glucose (65-110) mg/dL POC Capillary Glucose 60 L 120 H (65-105) mg/dl Calcium (8.4-10.2) mg/dL Magnesium (1.6-2.3) mg/dL Total Bilirubin (0.2-1.3) mg/dL AST (17-59) U/L ALT (6-50) U/L Alkaline Phosphatase (38-126) U/L Troponin I (0.000-0.034) ng/mL Total Protein (6.3-8.2) g/dL Albumin (3.5-5.1) g/dL Urine Color Yellow (Yellow) Urine Appearance Clear (Clear) Urine pH 6.5 (5.0-9.0) Ur Specific [place] 1.020 (1.001-1.035) Urine Protein Trace (Negative) mg/dL Urine Glucose (UA) Negative (Negative) mg/dL Urine Ketones 1+ H (Negative) mg/dL Ur Blood (Man) Negative (Negative) Urine Nitrate Negative (Negative) Urine Bilirubin Negative (Negative) Urine Urobilinogen 0.2 (<2.0) mg/dL Leukocyte Esterase Rfl Negative (Negative) RONNY/UL Urine RBC 0-2 (0-2) /hpf Urine WBC 0-5 (0-3) /hpf Ur Squamous Epith Cells None seen (Few) /hpf Urine Bacteria None seen /hpf Urine Casts 0-2 Influenza A (RT-PCR) (Negative) Influenza B (RT-PCR) (Negative) RSV (RT-PCR) (Negative) SARS-CoV-2 RNA (RT-PCR) (Negative) <Fantasma Rankin MD - Last Filed: 12/12/24 15:48> Discharge Plan Discharge Clinical Impression: Low blood sugar <Luciana Murillo APRN - Last Filed: 12/12/24 12:53> Patient Disposition: Home, Self-Care <Luciana Murillo APRN - Last Filed: 12/12/24 12:53> Condition: Stable <Luciana Murillo APRN - Last Filed: 12/12/24 12:53> Instructions: Antibiotic Form, What to Do if Your Blood Sugar is Low (ED) <Luciana Murillo APRN - Last Filed: 12/12/24 12:53> Additional Instructions: Please follow-up with your primary care physician. If you develop any new symptoms he can return to the ED for evaluation. If you feel like her blood sugars load please try to eat something and see if that improves her symptoms. If not you can return to the ED for evaluation. <Luciana Murillo APRN - Last Filed: 12/12/24 12:53> Patient Language: Brazilian <Luciana Murillo APRN - Last Filed: 12/12/24 12:53> Prescriptions: No Action No Home Medications <Luciana Murillo APRN - Last Filed: 12/12/24 12:53> Follow-up/Referrals: Harms,Darnell Vizcaino M.D. [Primary Care Provider] - <Luciana Murillo APRN - Last Filed: 12/12/24 12:53>
[2024-12-12 13:20] LABS: Basophils Absolute Auto 0.1 K/mm3 (0.0-0.1); Basophils Percent Auto 0.8 % (0.2-1.2); Eosinophils Percent Auto 0.2 % (0-4.4); Hematocrit 40.3 % (42.0-52.0); Hemoglobin 13.5 g/dL (14.0-18.0); Immature Granulocyte Absolute 0.02 K/mm3 (0.00-0.031); Immature Granulocyte Percent A 0.3 % (0-0.5); Lymphocytes Absolute Auto 1.59 K/mm3 (0.9-3.2); Lymphocytes Percent Auto 24.5 % (18.3-44.2); Mean Corpuscular HGB Conc 33.5 g/dl (32-36); Mean Corpuscular Hemoglobin 30.3 pg (26-34); Mean Corpuscular Volume 90.4 fl (80-100); Mean Platelet Volume 9.1 fl (7.4-10.4); Monocytes Absolute Auto 0.6 K/mm3 (0.1-0.6); Monocytes Percent Auto 9.4 % (2.6-8.5); Neutrophils Absolute Auto 4.2 K/mm3 (1.3-6.7); Neutrophils Percent Auto 64.8 % (45.5-73.1); Platelet Count Result 299 k/mm3 (150-375); Red Blood Count 4.46 M/mm3 (4.6-6.20); Red Cell Distribution Width 15.8 % (11.5-14.5); White Blood Count 6.5 K/mm3 (4.5-10.0)
[2024-12-12 13:24] LABS: Glucose Point of Care 67 mg/dl (65-105)
[2024-12-12 13:29] LABS: Alanine Aminotransferase 23 U/L (6-50); Albumin Level 4.2 g/dL (3.5-5.1); Alkaline Phosphatase 97 U/L (38-126); Anion Gap 13 mmol/L (4-12); Aspartate Amino Transferase 47 U/L (17-59); Bilirubin,Total 0.5 mg/dL (0.2-1.3); Blood Urea Nitrogen 12 mg/dL (9-20); Calcium 8.6 mg/dL (8.4-10.2); Carbon Dioxide 26 mmol/L (22-30); Chloride 101 mmol/L (98-107); Estimated CRCL calculation 118 ml/min; Estimated Glomerular Filt Rate > 60; Glucose 72 mg/dL (65-110); Potassium 4.3 mmol/L (3.4-5.0); Sodium 140 mmol/L (137-145)
[2024-12-12 13:32] LABS: Partial Thromboplastin Time 25.5 Seconds (22.3-36.8)
[2024-12-12 13:40] LABS: Troponin I < 0.012 ng/mL (0.000-0.034)
[2024-12-12 13:57] LABS: Influenza A QL RT-PCR Negative (Negative); Influenza B QL RT-PCR Negative (Negative); RSV RNA, RT-PCR Negative (Negative); SARS-CoV-2 RNA PCR Negative (Negative)
[2024-12-12 14:15] LABS: Glucose Point of Care 60 mg/dl (65-105)
[2024-12-12] MEDS: SODIUM CHLORIDE 0.9% IV 1,000 ML 999 ML IV CONT (14:26)
--- NOTE | 2024-12-12 14:26 | PC.NURSE ---
Patient given sandwich and juice per verbal from Dr Rankin
[2024-12-12 14:42] LABS: Add Urine Microscopic? YES; Appearance Urine Clear (Clear); Bacteria Urine None Seen /hpf; Bilirubin Urine Negative (Negative); Blood Urine Negative (Negative); Color Urine Yellow (Yellow); Glucose Urine UA Negative (Negative); Ketones Urine 1+ mg/dL (Negative); Leukocyte Esterase Ur Negative LEU/UL (Negative); Nitrate Urine Negative (Negative); Non Pathogenic Casts 0-2; Protein Urine Trace mg/dL (Negative); RBC Urine 0-2 /hpf (0-2); Squamous Epithelial Cell Urine None Seen /hpf (Few); Urobilinogen Urine 0.2 mg/dL (<2.0); WBC Urine 0-5 /hpf (0-3); pH Urine 6.5 (5.0-9.0)
--- NOTE | 2024-12-12 15:17 | PC.NURSE ---
Patient updated BS is 120. Patient states he is feeling better after eating.
[2024-12-12 15:18] LABS: Glucose Point of Care 120 mg/dl (65-105)
== END 2024-12-12 16:02 | disposition home or self-care (01) ==
PROVIDERS: Registered Nurse; Emergency Provider Emergency Medicine; PCP Family Medicine
DX: E16.2 Hypoglycemia, unspecified (principal); Z20.822 Contact with and (suspected) exposure to COVID-19
CPT/HCPCS: 36415; 71046; 80053; 81001; 82948; 83735; 84484; 85025; 85610; 85730; 87637; 93005; 96360; 99284; J7030

== ENCOUNTER 2025-01-05 13:37 | Emergency (ER) | payer OTHER, SELFPAY ==
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
--- OUTSIDE RECORDS SUMMARY | 2025-01-05 13:46 | XMS_ITS | Referral Summary ---
Author Organization [facility] Address [address] [place] [address] Care Team Providers Care Wafer Fab Technician Name Role Phone Darnell Alicea MD Primary Care Provider [phone] Source Comments [facility],non-owned Affiliates and Associated Physician Practices is amultiple site organization consisting of ambulatory clinics and hospital sitesin [place], [place], [place] and [place]. This disclosure is being madepursuant to the Care Everywhere program and may not contain all information available regarding this patient. Last updated 18.[facility] Allergies No known active allergies Medications * [...] 76 03/09/2017 3:31 PM CDT Temperature 37.4 C (99.3 F) 03/09/2017 3:31 PM CDT Respiratory Rate 16 02/24/2017 11:49 AM CDT Oxygen Saturation 97% 12/22/2016 2:09 PM TRAINING MGR Inhaled Oxygen Concentration - - Weight 72.6 kg (160 lb) 03/09/2017 3:31 PM CDT Height 182.9 cm (6') 03/09/2017 3:31 PM CDT Body Mass Index 21.7 03/09/2017 3:31 PM CDT Plan of Treatment Not on file Care Teams Wafer Fab Technician Relationship Specialty Start Date End Date Darnell Alicea MD [address] [place] [id number] PCP - General Internal Medicine 11/24/16
--- OUTSIDE RECORDS SUMMARY | 2025-01-05 13:47 | XMS_ITS | Clinical Summary ---
Author Organization [facility] Address [address] [place] [address] Care Team Providers Care Osteopathic Resident Name Role Phone Darnell Alicea MD Primary Care Provider [phone] Source Comments [facility],non-owned Affiliates and Associated Physician Practices is amultiple site organization consisting of ambulatory clinics and hospital sitesin [place], [place], [place] and [place]. This disclosure is being madepursuant to the Care Everywhere program and may not contain all information available regarding this patient. Last updated 18.[facility] Allergies No known active allergies Medications * [...] CDT Oxygen Saturation 97% 12/22/2016 2:09 PM SEWER PIPE LAYER Inhaled Oxygen Concentration - - Weight 72.6 [...] age to complete this topic Care Teams Osteopathic Resident Relationship Specialty Start Date End Date Darnell Alicea MD [address] [place] [phone] PCP - General Internal Medicine 11/24/16
--- OUTSIDE RECORDS SUMMARY | 2025-01-05 13:47 | XMS_ITS | Patient Health Summary ---
Author Organization [facility] Address [address] [place] [address] Care Team Providers Care Supervisor Powder And Primer Canning Name Role Phone Darnell Alicea MD Primary Care Provider [phone] Note from [facility],non-owned Affiliates and Associated Physician Practices is amultiple site organization consisting of ambulatory clinics and hospital sitesin [place], [place], [place] and [place]. This disclosure is being madepursuant to the Care Everywhere program and may not contain all information available regarding this patient. Last updated 18.[facility] Allergies No known active allergies Medications [...] CDT Oxygen Saturation 97% 12/22/2016 2:09 PM ELEVATOR ERECTOR Inhaled Oxygen Concentration - - Weight 72.6 [...] Unknown 02/24/2017 12:03 PM CDT Helene Felipe TRAFFIC DIVISION COMMANDING OFFICER-MANAGER MEDICAL AFFAIRS LAB - [facility] CARE ORDERABLES Care Teams Supervisor Powder And Primer Canning Relationship Specialty Start Date End Date [place] [phone] PCP - General Internal Medicine 11/24/16
[2025-01-05 13:53] VITALS: BP 125/95; PULSE 99; RESP 20; TEMP 37.1; O2SAT 100
--- NOTE | 2025-01-05 13:58 | ED.URI ---
HPI - URI/Sore Throat General Chief Complaint: Upper Respiratory Infection Stated Complaint: Chest Congestion/Congestion History of Present Illness HPI Narrative: 44-year-old male presented for complaint of nasal congestion and cough for several weeks, however he states he has been feeling more fatigued with a low-grade fever over the past few days. Related Data Allergies Allergy/AdvReac Type Severity Reaction Status Date / Time No Known Allergies Allergy Verified 01/05/25 14:00 Review of Systems Review of Systems: CONSTITUTIONAL: Denies body aches, fever, chills, or sweats. EYES: Denies visual changes, redness, or discharge. ENT: reports rhinorrhea, congestion CARDIOVASCULAR: Denies chest pain, palpitations, or edema. RESPIRATORY: reports coughDenies dyspnea. GASTROINTESTINAL: Denies abdominal pain, nausea, vomiting, or diarrhea. SKIN: Denies rash, itching, or wounds. MUSCULOSKELETAL: Denies back pain, joint pain, or myalgia. NEUROLOGIC: Denies headache PMFSH Past Medical History Medical History (Updated 01/05/25 @ 14:20 by Kristyn Martinez APRN) No pertinent past medical history Surgical History Surgical History No pertinent past surgical history Social History Social History Smokeless tobacco user: chewing tobacco Alcohol intake: current Gender identity (if verbalized by the patient): Male Exam Narrative: GENERAL: well-appearing, no acute distress. EYES: conjunctivae clear ENT: Mucous membranes moist. TM pearly borrero with normal light reflex bilaterally; no tragal tenderness. Oropharynx not erythematous without lesions. No drooling, no hoarseness, no trismus, uvula midline. No tripod positioning, hot potato voice, or soft palate swelling. NECK: Supple. No lymphadenopathy CHEST: Clear to auscultation, breath sounds equal. No respiratory distress, speaks in full sentences. HEART: Regular rate and rhythm. No murmur heard. SKIN: Warm, dry, no rash. NEURO: Alert and oriented x3. Course Course Emergency Course: Patient is aware of diagnosis, understands and agrees to treatment plan. Anticipatory guidance given. Patient agrees to follow-up as directed and is aware of reasons to seek care at the emergency department. Portions of this record may have been created with voice recognition software Level of Care: Express Care Visit Vital Signs Vital signs: Vital Signs Temperature 98.8 F 01/05/25 13:53 Pulse Rate 99 01/05/25 13:53 Respiratory Rate 01/05/25 13:53 Blood Pressure 125/95 H 01/05/25 13:53 Pulse Oximetry 100 01/05/25 13:53 Oxygen Delivery Room Air 01/05/25 13:53 Temperature 98.8 F 01/05/25 13:53 Pulse Rate 99 01/05/25 13:53 Respiratory Rate 20 01/05/25 13:53 Blood Pressure 125/95 H 01/05/25 13:53 Pulse Oximetry 100 01/05/25 13:53 Oxygen Delivery Room Air 01/05/25 13:53 MDM - URI/Sore Throat MDM Narrative Medical decision making narrative: Negative flu and COVID. Discussed physical exam findings. Advised supportive measures and signs/symptoms to go to the ER. Pt is appropriate for outpt treatment and f/u. Differential Diagnosis Differential diagnosis: Likely upper respiratory infection, sinusitis, viral infection, influenza and pharyngitis Discharge Plan Discharge Clinical Impression: Sinusitis Patient Disposition: Home, Self-Care Condition: Stable Instructions: Antibiotic Form, Rhinosinusitis (ED) Additional Instructions: Flu COVID negative. Recommendations: Flonase spray and Zyrtec (or Claritin/Giuliana) over the counter Cough syrup may cause drowsiness; avoid driving or take it at night time. Tylenol 1000mg every 8 hours as needed for pain Symptomatic treatment includes: rest, fluids, and increase humidity of the air at home. Follow up with your primary care provider in 1 week. Go to the ER for worsening symptoms or concerns. Patient Language: St Lucian Prescriptions: New amoxicillin-pot clavulanate 875-125 mg tablet 1 tablet PO Q12H 7 Days Qty: 14 0RF Follow-up/Referrals: Harms,Darnell Vizcaino M.D. [Primary Care Provider] - Stand Alone Forms: Work/School Release IP
[2025-01-05 14:21] LABS: EDCOVIDSCREEN Negative (Negative); EDINFLUASCREEN Negative (Negative); EDINFLUBSCREEN Negative (Negative)
== END 2025-01-05 14:22 | disposition home or self-care (01) ==
PROVIDERS: Emergency Provider Nurse Practitioner Family; PCP Family Medicine
DX: J32.9 Chronic sinusitis, unspecified (principal); Z20.822 Contact with and (suspected) exposure to COVID-19; F17.220 Nicotine dependence, chewing tobacco, uncomplicated
CPT/HCPCS: 87426; 87804; 99213; G0463

== ENCOUNTER 2025-01-16 14:04 | Emergency (ER) | payer OTHER, SELFPAY ==
[2025-01-16 14:08] VITALS: BP 115/79; PULSE 86; RESP 20; TEMP 36.7; O2SAT 100
--- NOTE | 2025-01-16 14:32 | ED.URI ---
HPI - URI/Sore Throat General Chief Complaint: Upper Respiratory Infection Stated Complaint: covid test w/ dr note Time Seen by Provider: 01/16/25 14:32 History of Present Illness HPI Narrative: 44-year-old male presented requesting flu and testing so that he may return to work tomorrow. He states after missing doses of Augmentin the past few days, which he is prescribed for sinus infection, he reported a raspy voice and was sent home from work today. says coworkers have Covid. Denies sob wheezing, n/v/d/f/c. Related Data Allergies Allergy/AdvReac Type Severity Reaction Status Date / Time No Known Allergies Allergy Verified 01/16/25 14:16 Review of Systems Review of Systems: per [facility] Past Medical History Medical History (Updated 01/16/25 @ 14:36 by Kristyn Martinez APRN) No pertinent past medical history Surgical History Surgical History No pertinent past surgical history Social History Social History Smokeless tobacco user: chewing tobacco Alcohol intake: current Gender identity (if verbalized by the patient): Male Exam Narrative: GENERAL: well-appearing, no acute distress. EYES: conjunctivae clear ENT: Mucous membranes moist. TM pearly borrero with normal light reflex bilaterally; no tragal tenderness. Oropharynx erythematous without lesions. no drooling, no hoarseness, no trismus, uvula midline. No tripod positioning, hot potato voice, or soft palate swelling. NECK: Supple. No lymphadenopathy CHEST: Clear to auscultation, breath sounds equal. No respiratory distress, speaks in full sentences. HEART: Regular rate and rhythm. No murmur heard. SKIN: Warm, dry, no rash. NEURO: Alert and oriented x3. Course Course Emergency Course: Patient is aware of diagnosis, understands and agrees to treatment plan. Anticipatory guidance given. Patient agrees to follow-up as directed and is aware of reasons to seek care at the emergency department. Portions of this record may have been created with voice recognition software Level of Care: Express Care Visit Vital Signs Vital signs: Vital Signs Temperature 98.1 F 01/16/25 14:08 Pulse Rate 86 01/16/25 14:08 Respiratory Rate 20 01/16/25 14:08 Blood Pressure 115/79 01/16/25 14:08 Pulse Oximetry 100 01/16/25 14:08 Oxygen Delivery Room Air 01/16/25 14:08 Temperature 98.1 F 01/16/25 14:08 Pulse Rate 86 01/16/25 14:08 Respiratory Rate 20 01/16/25 14:08 Blood Pressure 115/79 01/16/25 14:08 Pulse Oximetry 100 01/16/25 14:08 Oxygen Delivery Room Air 01/16/25 14:08 MDM - URI/Sore Throat MDM Narrative Medical decision making narrative: Negative flu and COVID. Discussed physical exam findings. Advised supportive measures and signs/symptoms to go to the ER. Pt is appropriate for outpt treatment and f/u. Differential Diagnosis Differential diagnosis: Likely upper respiratory infection, viral infection and pharyngitis Discharge Plan Discharge Clinical Impression: Upper respiratory infection Patient Disposition: Home, Self-Care Condition: Stable Instructions: Antibiotic Form, Upper Respiratory Infection (ED) Additional Instructions: Flu COVID negative. Recommendations: Flonase spray and Zyrtec (or Claritin/Giuliana) over the counter Cough syrup may cause drowsiness; avoid driving or take it at night time. Tylenol 1000mg every 8 hours as needed for pain Symptomatic treatment includes: rest, fluids, and increase humidity of the air at home. Follow up with your primary care provider in 1 week. Go to the ER for worsening symptoms or concerns. Patient Language: Khmer Prescriptions: No Action amoxicillin-pot clavulanate 875-125 mg tablet 1 tablet PO Q12H 7 Days Qty: 14 0RF Follow-up/Referrals: Harms,Darnell Vizcaino M.D. [Primary Care Provider] - Stand Alone Forms: Work/School Release IP Time of Disposition: 14:36
[2025-01-16 14:34] LABS: EDCOVIDSCREEN Negative (Negative); EDINFLUASCREEN Negative (Negative); EDINFLUBSCREEN Negative (Negative)
== END 2025-01-16 14:39 | disposition home or self-care (01) ==
PROVIDERS: Emergency Provider Nurse Practitioner Family; PCP Family Medicine
DX: J06.9 Acute upper respiratory infection, unspecified (principal); Z20.822 Contact with and (suspected) exposure to COVID-19
CPT/HCPCS: 87426; 87804; 99212; G0463

== ENCOUNTER 2025-02-08 08:29 | Emergency (ER) | payer OTHER, SELFPAY ==
[2025-02-08 08:40] VITALS: BP 128/90; PULSE 84; RESP 16; TEMP 36.6; O2SAT 100
--- OUTSIDE RECORDS SUMMARY | 2025-02-08 08:42 | XMS_ITS | Clinical Summary ---
Author Organization [facility] Address [address] [place] [address] Care Team Providers Care Factory Worker Name Role Phone Darnell Alicea MD Primary Care Provider [phone] [phone] Source Comments [facility],non-owned Affiliates and Associated Physician Practices is amultiple site organization consisting of ambulatory clinics and hospital sitesin [place], [place], [place] and [place]. This disclosure is being madepursuant to the Care Everywhere program and may not contain all information available regarding this patient. Last updated 18.[facility] Allergies No known active allergies Medications * [...] CDT Oxygen Saturation 97% 12/22/2016 2:09 PM SENIOR ENVIRONMENTAL PRACTICE LEADER Inhaled Oxygen Concentration - - Weight 72.6 [...] to complete this topic MENINGOCOCCAL (Group B) VACC INE SHARED DECISION-MAKING Aged Out No longer eligibl e based on patient's age to complete this topic MENINGOCOCCAL GROUPS A/C/Y/W VACCINE Aged Out No longer eligible b ased on patient's age to complete this topic PNEUMOCOCCAL VACCINE Aged Out No long er eligible based on patient's age to complete this topic Care Teams Factory Worker Relationship Specialty Start Date End Date Darnell Alicea MD [address] [place] [phone] PCP - General Internal Medicine 11/24/16
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
--- NOTE | 2025-02-08 08:57 | ED_ITS ---
HPI - URI/Sore Throat General Chief Complaint: Upper Respiratory Infection Stated Complaint: Headache/Congestion/Eye Problem Source: patient and RN notes reviewed Mode of arrival: ambulatory Limitations: no limitations History of Present Illness HPI Narrative: 44-year-old male presented with complaint of nasal drainage and sinus pressure worsening for the past 10 days. reports headache and head feels full. States symptoms started with the weather change. Taken [place], using Claritin and Flonase. Denies shortness of breath, wheezing, nausea, vomiting, diarrhea, fevers or chills. MD elicited complaint: cough Related Data Home Medications ?Medication ?Instructions ?Recorded ?Confirmed ?Last Taken ?Type baclofen 10 mg tablet mg 02/08/25 Unknown History Allergies Allergy/AdvReac Type Severity Reaction Status Date / Time No Known Allergies Allergy Verified 01/16/25 14:16 Review of Systems Review of Systems: CONSTITUTIONAL: Endorses malaise,denies chills, sweats, fever EYES: Denies visual changes, redness, or discharge ENT: Reports rhinorrhea, congestion, sinus pain, otalgia, denies sore throat CARDIOVASCULAR: Denies chest pain, palpitations, edema RESPIRATORY: Reports cough, post nasal drainage. Denies dyspnea GASTROINTESTINAL: Denies abdominal pain, nausea, vomiting, diarrhea SKIN: Denies rash MUSCULOSKELETAL: Endorses myalgia NEUROLOGIC: Denies headache PMF Past Medical History Medical History (Updated 02/08/25 @ 09:05 by Kristyn Martinez APRN) No pertinent past medical history Surgical History Surgical History No pertinent past surgical history Social History Social History Smokeless tobacco user: chewing tobacco Alcohol intake: current Gender identity (if verbalized by the patient): Male Exam Narrative: GENERAL: mildly ill-appearing, nontoxic no acute distress. EYES: conjunctivae clear ENT: Mucous membranes moist. TM pearly borrero with dull light reflex bilaterally; no tragal tenderness. Oropharynx erythematous without lesions or exudate, no drooling, no hoarseness, no trismus, uvula midline. CHEST: Clear to auscultation, breath sounds equal. No wheezing, rhonchi, rales, or stridor. No respiratory distress, speaks in full sentences. HEART: Regular rate and rhythm. SKIN: Warm, dry, no rash. NEURO: Alert and oriented x3. PSYCH: Normal mood and affect Course Course Emergency Course: Patient is aware of diagnosis, understands and agrees to treatment plan. Anticipatory guidance given. Patient agrees to follow-up as directed and is aware of reasons to seek care at the emergency department. Portions of this record may have been created with voice recognition software Level of Care: Express Care Visit Vital Signs Vital signs: Vital Signs Temperature 97.8 F 02/08/25 08:40 Pulse Rate 84 02/08/25 08:40 Respiratory Rate 16 02/08/25 08:40 Blood Pressure 128/90 02/08/25 08:40 Pulse Oximetry 100 02/08/25 08:40 Oxygen Delivery Room Air 02/08/25 08:40 Temperature 97.8 F 02/08/25 08:40 Pulse Rate 84 02/08/25 08:40 Respiratory Rate 16 02/08/25 08:40 Blood Pressure 128/90 02/08/25 08:40 Pulse Oximetry 100 02/08/25 08:40 Oxygen Delivery Room Air 02/08/25 08:40 reviewed MDM - URI/Sore Throat MDM Narrative Medical decision making narrative: Discussed physical exam findings Consistent with sinusitis, symptoms> 10 days. Advised supportive measures and signs/symptoms to go to the ER. Pt is appropriate for outpt treatment and f/u. Differential Diagnosis Differential diagnosis: Likely upper respiratory infection, sinusitis and viral infection Discharge Plan Discharge Clinical Impression: Sinusitis Patient Disposition: Home, Self-Care Condition: Stable Instructions: Antibiotic Form, Rhinosinusitis (ED) Additional Instructions: Take antibiotic as directed Recommendations: Flonase spray and Zyrtec (or Claritin/Giuliana).Saline mist as needed. Sudafed according to package directions. over the counter Cough syrup may cause drowsiness; avoid driving or take it at night time. Tylenol 1000mg every 8 hours as needed for pain Rest, fluids, and increase humidity of the air at home. Follow up with your primary care provider in 1 week. Go to the ER for worsening symptoms or concerns. Patient Language: Italian Prescriptions: New amoxicillin-pot clavulanate 875-125 mg tablet 1 tablet PO Q12H 7 Days Qty: 14 0RF No Action baclofen 10 mg tablet Follow-up/Referrals: Harms,Darnell Vizcaino M.D. [Primary Care Provider] - Stand Alone Forms: Work/School Release IP Time of Disposition: 09:06
== END 2025-02-08 09:11 | disposition home or self-care (01) ==
PROVIDERS: Emergency Provider Nurse Practitioner Family; PCP Family Medicine
DX: J32.9 Chronic sinusitis, unspecified (principal); F17.220 Nicotine dependence, chewing tobacco, uncomplicated
CPT/HCPCS: 99213; G0463